=== PATIENT | male | born 1945 | race Caucasian/White ===

== ENCOUNTER 2016-07-09 06:53 | Observation (INO) | payer MEDICARE, OTHER ==
[~2016-07-09] VITALS: Ht 177.8 cm; Wt 65.0 kg
--- NOTE | ~2016-07-09 | OR ---
PATIENT'S NAME: BJ MITCHELL [facility] AGE: 71 Y [address] 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 OPERATIONS/PROCEDURES: 1. Direct laryngoscopy with biopsy. 2. Debulking of epiglottic mass. ANESTHESIA: General endotracheal anesthesia. ESTIMATED BLOOD LOSS: Minimal. COMPLICATIONS: None. FINDINGS: The patient had a large exophytic mass occupying the laryngeal surface of the epiglottis extending to the right, occupying the right area of epiglottic fold. Extended down to the approximately 1 cm above the false cord, extended posteriorly towards the arytenoid with no involvement. There is erosion of the portion of the epiglottic cartilage. DESCRIPTION OF PROCEDURE: The patient was taken to the operating room, laid in supine position with general endotracheal anesthesia. Table was rotated to 90 degrees to the right. Shoulder roll placed. Head was placed in a sniffing position. Laryngoscope was inserted within the oropharynx, directed down the left lateral pharyngeal wall. The patient had a large exophytic mass completely obstructing visualization of his epiglottis and/or supraglottic structures and cords. Scope was advanced. Vocal cords were visualized and noted to be within normal limits. False cords were normal. Laryngoscope was slowly withdrawn. The mass was approximately 2 to 3 cm superior to the anterior commissure, occupied the entire mid to the right laryngeal surface of the epiglottis. Mass was biopsied, debulked. Microscope was brought into place. The mass was from the epiglottic cartilage. There was erosion of the epiglottic cartilage extending towards the tip of the epiglottis. Mass extended along the right area of epiglottic fold, extending PATIENT'S NAME: BJ MITCHELL [facility] AGE: 71 Y [address] ROOM: [place] [address] [facility] ADMIT DATE: 07/09/2016 OR/Procedure Report DISCHARGE DATE: FAMILY PHYSICIAN: MORIS RODRIGUEZ (VIGNESH) ATTENDING PHYSICIAN: Karthik Douglas V posteriorly towards the arytenoid, but not occupying the arytenoid cartilage. The mass was debulked. There was moderate edema of the vallecula. The scope was advanced into the right piriform sinus. There was no involvement, the right lateral pharyngeal wall was normal. Hemostasis was obtained using Bugbee cautery. The area of epiglottic fold was skeletonized left and intact with residual carcinoma. The scope was withdrawn. Hemostasis was adequate. Scope was able to be advanced with elevation of the epiglottis anteriorly with exposed epiglottic cartilage. Cords were easily visualized without evidence of supraglottic obstruction at this point. Cords were sprayed with LTA lidocaine solution. The patient was aroused, extubated, and discharged from the operating room to the recovery room in satisfactory condition without respiratory difficulties. KARTHIK DOUGLAS MD TVC/modl /[id number] d: 07/09/161951 t: 07/16/16720, OPERATIVE SUMMARY
--- NOTE | ~2016-07-09 | PUL ---
PATIENT'S NAME: BJ MITCHELL [facility] AGE: 71 Y [address] ROOM: [address] [address] LOCATION: [facility] ADMIT DATE: 07/09/2016 Pulmonary DISCHARGE DATE: 07/10/2016 FAMILY PHYSICIAN: MORIS RODRIGUEZ MD (ALMA) ATTENDING PHYSICIAN: Karthik Young V NAME OF PROCEDURE: Pulmonary Function Test DATE OF PROCEDURE: July 10, 2016 TECH: ATripe, DOG DAY CARE ATTENDANT REASON FOR EXAM: COPD RESULTS: 1. FVC was 2.3 liters which is 51% of predicted and low, FEV1 was 0.8 liters which is 24% of predicted and low, and FEV1/FVC was 35% and low. The flow volume curve revealed significant airflow limitation. After bronchodilator administration FVC increased to 3.08 liters which is 34% increase and FEV1 increased to 0.86 liters which is a 9% increase. FEV1/FVC was 28%. 2. DLCO was 10.3 with nine with an adjusted DLCO of 11.1 which is 60% of predicted and normal. 3. Total lung capacity was 8.69 liters which is 133% of predicted and high, and residual volume was 6.03 liters which is 239% of predicted and high. PHYSICIAN INTERPRETATION: The patient has very severe airflow limitation with a significant bronchodilator response. His diffusion capacity is normal. There is evidence of significant hyperinflation and air trapping on the lung volumes. MD DEACON BOWER/yuriy /[id number] dtt: 07/13/16 0941 , JOANNA RAMRIEZ dtd: 07/13/16 0627
[~2016-07-09 06:53] MED LIST: AMBIEN10 MG PO; AMMONIUM LACTA140 GM TOP; BUSPAR10 MG PO; DAILY VITE1 EACH PO; DESOWEN 0.05%15 GM TOP; DOCUSATE SODIU100 MG PO; FLOMAX0.4 MG PO; HYDROCODON-ACE1 EAC4 PO; IPRATROPIUM BRO15 ML NOSE; LEVOTHROID (SY88 MCG PO; LEXAPRO20 MG PO; LITHOBID300 MG PO; MIRALAX17 GM PO; MULTAQ400 MG PO; NEURONTIN600 MG PO; NIZORAL120 ML TOP; PROTONIX40 MG PO; PROVENTIL OR V6.7 GM INH; SEROQUEL50 MG PO; SPIRIVA HANDIHA1 KIT INH; SYMBICORT 16010.2 GM INH; VIAGRA100 MG PO; VITAMIN D-40400 UNIT PO; ZANTAC (NON-FO150 MG PO
[2016-07-10] MEDS ORDERED: NORCO 5-325 TA1 EACH PO (08:24)
[2016-08-17] MEDS ORDERED: AZITHROMYCIN250 MG PO (09:19)
[2016-08-17] MEDS ORDERED: OXYGEN M-15 INH (09:24)
[2016-08-17] MEDS ORDERED: LOPRESSOR25 MG PO (09:40)
[2016-08-23] MEDS ORDERED: SINEMET 25-1001 EACH PO ×2 (06:48→06:49)
[2016-08-23] MEDS ORDERED: "\\\"PREP SPRAY\\\"-TIN4 OZ" (06:48)
== END 2016-07-10 15:10 | disposition disaster alternative care site (69) ==
LOC: GSDC 06:53 → GPCU 06:53 → GSDC 06:54 → GPCU 06:54 → GSDC 07:00 → GPCU 07-10 15:10
PROVIDERS: ADMIT Otolaryngology
PROC: 0CBR8ZZ Excision of Epiglottis, Via Natural or Artificial Opening Endoscopic (ICD-10-PCS; principal; 2016-07-09)
DX: J38.7 Other diseases of larynx (principal); E03.9 Hypothyroidism, unspecified; J43.9 Emphysema, unspecified; J44.9 Chronic obstructive pulmonary disease, unspecified; G47.30 Sleep apnea, unspecified; Z79.51 Long term (current) use of inhaled steroids; Z88.5 Allergy status to narcotic agent; Z79.899 Other long term (current) drug therapy
CPT/HCPCS: G0378; J0131; J0171; J1100; J2175; J3010; J7120; Q9967

== ENCOUNTER → 2016-08-02 | Outpatient (CLI) | payer MEDICARE, OTHER ==
[~2016-08-02] MED LIST changes: +"\\\"PREP SPRAY\\\"-TIN4 OZ"; +AZITHROMYCIN250 MG PO; +LOPRESSOR25 MG PO; +NORCO 5-325 TA1 EACH PO; +OXYGEN M-15 INH; +SINEMET 25-1001 EACH PO
== END | disposition disaster alternative care site (69) ==
LOC: GKIC 11:29
DX: C32.1 Malignant neoplasm of supraglottis (principal)
CPT/HCPCS: A9552

== ENCOUNTER → 2016-08-23 | Day surgery (SDC) | payer MEDICARE, OTHER ==
[~2016-08-23] VITALS: Ht 177.8 cm; Wt 64.2 kg
--- NOTE | ~2016-08-23 | OR ---
PATIENT'S NAME: BJ MITCHELL [facility] AGE: 71 Y [address] 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 POSTOPERATIVE DIAGNOSIS: Head and neck cancer with need for enteral access as well as long-term IV access. PROCEDURES PERFORMED: 1. Left subclavian port placement. 2. Percutaneous endoscopic gastrostomy tube. FINDINGS: New port aspirated and flushed easily at the conclusion of the case. The gastrostomy tube appeared to be in good position, approximately 3 cm to the skin. ESTIMATED BLOOD LOSS: Less than 20 mL. COMPLICATIONS: None. INDICATIONS: The patient is a 71-year-old male, who has head and neck cancer. He was in need of chemotherapy as well as radiation. It was felt that he would need enteral access, and also was in need of chemotherapy. I was asked to place a port and try to obtain enteral access. We discussed various ways to do this with risks, benefits, and alternatives of each. He wished to proceed with the port, as well as attempted percutaneous endoscopic gastrostomy tube. PROCEDURE IN DETAIL: The patient was taken into the Operating Room, was supine, and given IV sedation and subsequently intubated. His chest and neck were cleansed with ChloraPrep and sterilely draped. Local anesthetic was infiltrated beneath the left clavicle. An access needle was inserted into the subclavian vein. Wire access was obtained. Fluoroscopy was used to assure the wire was in appropriate position. Further local anesthetic was infiltrated in the left chest wall. A transverse incision was created encompassing the wire. Using electrocautery, a subcutaneous pocket was created. Sheath and dilator were inserted over the wire. The wire and dilator were removed. The catheter was then inserted through the sheath. The PATIENT'S NAME: BJ MITCHELL [facility] AGE: 71 Y [address] ROOM: [place] [address] LOCATION: [facility] ADMIT DATE: 08/23/2016 OR/Procedure Report DISCHARGE DATE: FAMILY PHYSICIAN: MORIS RODRIGUEZ (VIGNESH) ATTENDING PHYSICIAN: Boston Esparza sheath was removed. The tip of the catheter was positioned near the atriocaval junction using fluoroscopy. A locking hub was placed on the catheter. The catheter was cut to its appropriate length. The locking hub was then placed around the catheter and secured to the chest wall using 2-0 PDS suture. The port aspirated blood and was flushed with heparinized saline. The deep dermal layers were approximated with 3-0 Vicryl suture and the skin was closed with 4-0 Monocryl suture. Steri-Strips and sterile dressings were placed. Fluoroscopy again examined the catheter. The catheter appeared to lie without kinks, and was near to the atriocaval junction. Following this, the feeding tube was attended to. A flexible endoscope was inserted into the mouth and esophageal lumen. The oropharynx mass was visible. We were able to advance beyond this and into the esophageal lumen, and into the stomach. On insufflation of the stomach, although having had a partial gastrectomy before, there was still adequate stomach to place a PEG tube. A light reflex was able to be seen on the anterior abdominal wall, and this moved in a one-to-one motion. The introducer needle was then placed into the gastric lumen under endoscopic guidance. Wire was placed through this, and the wire was then snared. The snare wire and flexible endoscope were all brought out through the mouth. The PEG tube was fed over the wire. The wire, PEG tube, and flexible endoscope were all then pulled back into the stomach and brought out through the anterior abdominal wall. The bumper was secured. It appeared to be in good position at 3.5 cm at the skin. Hemostasis had been obtained. The PEG tube was placed to gravity. The flexible endoscope was removed. The patient tolerated this well. BOSTON ESPARZA MD BJO/modl /[id number] d: 08/24/16 0012 t: 09/06/16 1730, OPERATIVE SUMMARY
== END | disposition disaster alternative care site (69) ==
LOC: GPOC 08-17 10:00 → GEND 05:58 → GPOC 07:00
PROC: 0JH60XZ Insertion of Tunneled Vascular Access Device into Chest Subcutaneous Tissue and Fascia, Open Approach (ICD-10-PCS; principal; 2016-08-23)
PROC: 05H633Z Insertion of Infusion Device into Left Subclavian Vein, Percutaneous Approach (ICD-10-PCS; 2016-08-23)
PROC: 0DH63UZ Insertion of Feeding Device into Stomach, Percutaneous Approach (ICD-10-PCS; 2016-08-23)
DX: C76.0 Malignant neoplasm of head, face and neck (principal); F32.9 Major depressive disorder, single episode, unspecified; F41.9 Anxiety disorder, unspecified; I48.91 Unspecified atrial fibrillation; J44.9 Chronic obstructive pulmonary disease, unspecified; G47.30 Sleep apnea, unspecified; E03.9 Hypothyroidism, unspecified; Z98.890 Other specified postprocedural states; Z90.49 Acquired absence of other specified parts of digestive tract; Z98.41 Cataract extraction status, right eye; Z98.42 Cataract extraction status, left eye; Z79.2 Long term (current) use of antibiotics; Z79.899 Other long term (current) drug therapy; Z88.5 Allergy status to narcotic agent
CPT/HCPCS: C1788; J0690; J1100; J1642; J2001; J2250; J2405; J3010; J7120